=== PATIENT | male | born 1940 | race Caucasian/White ===

== ENCOUNTER 2016-12-28 09:10 | Outpatient (CLI) | payer MEDICARE, BC | END 2016-12-28 23:59 | disposition home or self-care (01) | LOC: CT 09:10 | DX: J43.2 Centrilobular emphysema (principal); I70.0 Atherosclerosis of aorta; N28.1 Cyst of kidney, acquired; I51.7 Cardiomegaly; Z87.891 Personal history of nicotine dependence | CPT/HCPCS: 71250 ==

== ENCOUNTER 2017-02-12 17:41 | Inpatient (IN) | payer MEDICARE, BC ==
[~2017-02-12] VITALS: Ht 172.7 cm; Wt 85.7 kg
[2017-02-12] VITALS (9 sets, daily range): BP systolic 106–123; BP diastolic 40–61
[2017-02-12 18:42] LABS: BASOPHILS # (AUTO) 0.1 K/uL (0.0-8.0); BASOPHILS % (AUTO) 0.6 % (0.0-2.0); EOSINOPHILS # (AUTO) 0.2 K/uL (0.0-0.7); EOSINOPHILS % (AUTO) 1.9 % (0.0-7.0); LYMPHOCYTES # (AUTO) 3.7 K/UL (0.8-4.8); LYMPHOCYTES % (AUTO) 42.3 % (20.5-51.5); MEAN CORPUSCULAR HEMOGLOBIN 28.8 UUG (27.0-31.0); MEAN CORPUSCULAR HGB CONC 33 g/dL (32.0-37.0); MEAN CORPUSCULAR VOLUME 87.3 FL (82.0-92.0); MONOCYTES # (AUTO) 0.8 K/UL (0.1-1.30); MONOCYTES % (AUTO) 9.6 % (0.0-11.0); NEUTROPHILS # (AUTO) 3.8 K/UL (1.8-8.9); NEUTROPHILS % (AUTO) 45.6 % (38.5-71.5); PLATELET COUNT (AUTO) 151 K/UL (150-450); RED CELL DISTRIBUTION WIDTH 13.8 % (11.5-14.5); WHITE BLOOD COUNT (AUTO) 8.6 K/UL (4.0-11.2)
[2017-02-12 18:47] LABS: CALCIUM 8.3 mg/dL (8.5-10.1); CHLORIDE 111 mmol/L (98-107); GLUCOSE 111 mg/dL (74-106); POTASSIUM 5.5 mmol/L (3.5-5.1); SODIUM SERUM 140 mmol/L (136-145)
[2017-02-12 18:48] LABS: CARBON DIOXIDE 19 mmol/L (21-32); CREATININE 2.1 mg/dL (0.6-1.3)
[2017-02-12 18:54] LABS: ALANINE AMINOTRANSFERASE 18 U/L (16-63); ALBUMIN 3.2 g/dL (3.4-5.0); ALKALINE PHOSPHATASE 59 U/L (50-136); ASPARTATE AMINOTRANSFERASE 20 U/L (15-37); BILIRUBIN,DIRECT < 0.1 mg/dL (0.0-0.2); BILIRUBIN,TOTAL 0.2 mg/dL (0.2-1.0)
[2017-02-12 18:57] LABS: RED BLOOD CELL COUNT(AUTO) 2.14 MIL/UL (4.7-6.1)
[2017-02-12] MEDS ORDERED: ATOR20TA PO (19:00)
[2017-02-12] MEDS ORDERED: EZET10TA PO (19:00)
[2017-02-12] MEDS ORDERED: ASPI81TA31 PO (19:00)
[2017-02-12] MEDS ORDERED: FURO20TA4 PO (19:00)
[2017-02-12] MEDS ORDERED: AZOR PO (19:00)
[2017-02-12] MEDS ORDERED: OLME20TA15 PO (19:00)
[2017-02-12 19:07] LABS: HEMATOCRIT 18.7 % (40-50); HEMOGLOBIN 6.2 G/DL (14.0-18.0)
[2017-02-12 19:08] LABS: NEUTROPHILS % (MANUAL) 0 % (42-75)
[2017-02-12 19:09] LABS: UREA NITROGEN, BLOOD 113 mg/dL (7-18)
[2017-02-12] MEDS ORDERED: IV NORMAL SALINE 1000 ML BAG IV ONE (19:30)
--- NOTE | 2017-02-12 20:09 | NUR ---
transfered to [facility] via [facility]
[2017-02-12] MEDS ORDERED: FUROSEMIDE 20 MG/2 ML VIAL IV ONE (20:30)
[2017-02-12] MEDS ORDERED: ACETAMINOPHEN 325 MG TABLET PO PRN (20:30)
--- NOTE | 2017-02-12 20:30 | NUR ---
Received patient from ER. Patient in stable condition. Alert and oriented x4. No complaints of pain or discomfort at this time. Vital signs WNL. V-paced with LBBB noted on bedside monitor. Hemodynamically stable. SpO2 and RR WNL on room air. Peripheral IV to right forearm #20, intact and patent. Will continue plan of care. and daughter at bedside. Spoke with Dr. Martinez for admission orders and home med reconciliation, see order list. Per MD, BMP and H/H to be re-evaluated 1hr post-transfusion of 2nd unit PRBC, then H/H Q6HRS
[2017-02-12] MEDS: PANTOPRAZOLE SODIUM 40 MG VIAL IV SCH (21:21)
--- NOTE | 2017-02-12 22:01 | NUR ---
Pt placed on CPAP per MD orders settings CPAP 8, FIO2-21%. Pt appears to be tolerating settings well at this time. Pt to be monitored throughout the shift. BVM at bedside. V60 alarms have been checked and remain audible at this time.
--- NOTE | 2017-02-12 23:35 | NUR ---
Pt's has dropped off pt's own personal CPAP machine and has requested for it to be placed in place of the hospital V60. Pt now on own CPAP and is in no resp. distress.
--- NOTE | 2017-02-12 23:35 | NUR ---
Patient prefers to use home CPAP machine. brought to bedside and connecting at this time.
--- NOTE | 2017-02-12 23:45 | NUR ---
Transfused first unit of pRBCs. No signs of adverse effect noted. Patient continues to be in stable condition.
[2017-02-13] VITALS (21 sets, daily range): BP systolic 91–142; BP diastolic 37–109
[2017-02-13] MEDS ORDERED: FUROSEMIDE 20 MG/2 ML VIAL ONE (02:42)
[2017-02-13] MEDS: IV D5/ 0.9% NACL 1,000 ML IV PRN ×2 (03:11→18:02)
--- NOTE | 2017-02-13 03:39 | NUR ---
Transfused 2nd unit of PRBC. No adverse reactions noted. Lasix pulled from [facility] and administered as ordered. See eMAR
--- NOTE | 2017-02-13 03:40 | NUR ---
Patient had a small bowel movement, dark in color. Will continue to monitor.
--- NOTE | 2017-02-13 03:42 | NUR ---
Per MD orders, BMP and H/H to be re-evaluated 1hour post-transfusion. Transfusion of 2nd unit PRBC completed approximately 0315. Called laboratory to draw morning labs at 0415.
--- NOTE | 2017-02-13 04:03 | NUR ---
Patient had another bowel movement, dark in color. Will continue to monitor.
[2017-02-13 04:51] LABS: BASOPHILS # (AUTO) 0.1 K/uL (0.0-8.0); BASOPHILS % (AUTO) 0.7 % (0.0-2.0); EOSINOPHILS # (AUTO) 0.2 K/uL (0.0-0.7); EOSINOPHILS % (AUTO) 2.3 % (0.0-7.0); HEMATOCRIT 27.5 % (40-50); LYMPHOCYTES # (AUTO) 2.8 K/UL (0.8-4.8); MEAN CORPUSCULAR HEMOGLOBIN 28.9 UUG (27.0-31.0); MEAN CORPUSCULAR HGB CONC 33 g/dL (32.0-37.0); MEAN CORPUSCULAR VOLUME 88.5 FL (82.0-92.0); MONOCYTES # (AUTO) 0.7 K/UL (0.1-1.30); MONOCYTES % (AUTO) 8.1 % (0.0-11.0); NEUTROPHILS # (AUTO) 5.4 K/UL (1.8-8.9); NEUTROPHILS % (AUTO) 57.9 % (38.5-71.5); PLATELET COUNT (AUTO) 141 K/UL (150-450); RED CELL DISTRIBUTION WIDTH 14.1 % (11.5-14.5); WHITE BLOOD COUNT (AUTO) 9.2 K/UL (4.0-11.2)
--- NOTE | 2017-02-13 05:00 | NUR ---
Patient deferred bed bath and morning care to a later time. Will endorse to day shift
[2017-02-13 05:02] LABS: CALCIUM 8.4 mg/dL (8.5-10.1); MAGNESIUM 2.2 mg/dL (1.8-2.4); PHOSPHOROUS 4.5 mg/dL (2.5-4.9); POTASSIUM 5.4 mmol/L (3.5-5.1)
[2017-02-13 05:19] LABS: CREATININE 2.1 mg/dL (0.6-1.3)
[2017-02-13 05:22] LABS: ALBUMIN 3.5 g/dL (3.4-5.0); BILIRUBIN,DIRECT 0.1 mg/dL (0.0-0.2); BILIRUBIN,TOTAL 0.4 mg/dL (0.2-1.0); TOTAL PROTEIN, SERUM 6.5 g/dL (6.4-8.2)
--- NOTE | 2017-02-13 06:00 | NUR ---
Patient resting in bed, at bedside. Denies pain or discomfort. Bedside monitor intact, V-paced LBBB. Home CPAP machine in place. SpO2 and RR WNL. Afebrile throughout shift. 2 units PRBCs transfused with no adverse reactions. Tolerating IVF well. Able to walk to restroom with minimal assistance. Moved bowels x3 this morning, continues to have black stool. Good urine output. No significant events throughout the night, no acute distress noted. Will give SBAR report to day shift nurse. Spoke with Dr. Martinez this AM, updates given.
[2017-02-13] MEDS: PANTOPRAZOLE SODIUM 40 MG VIAL IV SCH ×2 (08:31→20:56)
[2017-02-13 08:32] LABS: IRON, SERUM 93 ug/dL (50-175)
[2017-02-13 09:32] LABS: *OCCULT BLOOD STOOL POSITIVE (NEGATIVE)
[2017-02-13 10:13] LABS: HEMATOCRIT 25.7 % (40-50); HEMOGLOBIN 8.4 G/DL (14.0-18.0)
[2017-02-13 10:22] LABS: CALCIUM 8.1 mg/dL (8.5-10.1); POTASSIUM 5.5 mmol/L (3.5-5.1)
--- NOTE | 2017-02-13 10:56 | NUR ---
PHYSICAL THERAPY CANCELLED TODAY PER FAMILY REQUEST, CONCERNED REGARDING GI BLEED.
[2017-02-13] MEDS ORDERED: EPOETIN ALFA 20,000 UNIT/ML ML SQ ONE (14:15)
[2017-02-13 15:38] LABS: HEMATOCRIT 25.6 % (40-50); HEMOGLOBIN 8.4 G/DL (14.0-18.0)
--- NOTE | 2017-02-13 19:30 | NUR ---
Patient resting in bed, in no acute distress. Denies any pain or discomfort at this time. Awake, alert oriented x4. On bedside monitor, V paced with LBBB. HR WNL. Hemodynamically stable. On room air, SpO2 and RR WNL. Peripheral IV right antecubital is patent and intact. DVT pumps as ordered. NPO status. SBAR report received from Napoleon GILES RN. Will continue plan of care.
[2017-02-13 22:41] LABS: HEMOGLOBIN 8.7 G/DL (14.0-18.0)
--- NOTE | 2017-02-13 22:58 | NUR ---
Improved Hgb and Hct. No call to call needed to MD. Will continue to monitor q6hrs
[2017-02-14] VITALS (13 sets, daily range): BP systolic 102–140; BP diastolic 42–91
[2017-02-14 04:37] LABS: HEMATOCRIT 26.4 % (40-50); HEMOGLOBIN 8.5 G/DL (14.0-18.0)
[2017-02-14] MEDS: IV D5/ 0.9% NACL 1,000 ML IV PRN ×2 (05:46→11:48)
--- NOTE | 2017-02-14 08:29 | NUR ---
STARTED 1 UNIT OF BLOOD TRANSFUSION PER DOCTOR [facility] ORDER. PATIENT IS DOWN GRADED TO TELE STATUS.
[2017-02-14 09:15] LABS: CALCIUM 8.2 mg/dL (8.5-10.1); POTASSIUM 5.2 mmol/L (3.5-5.1)
[2017-02-14 09:17] LABS: CREATININE 1.8 mg/dL (0.6-1.3)
--- NOTE | 2017-02-14 09:45 | NUR ---
patient is back from recovery,report received from rehana BOX. patient returns fully awake alert patient is able to sit on side of bed. patient passing flatulence. patient diet changed to full clear liquid diet. blood transfusion is still running
[2017-02-14] MEDS: PANTOPRAZOLE SODIUM 40 MG VIAL IV SCH (10:00)
--- NOTE | 2017-02-14 10:24 | NUR ---
report given to GRECIA BOX patient will be going to room 228.
--- NOTE | 2017-02-14 10:58 | NUR ---
second set of blood transfusion vitals taken during EGD procedure
--- NOTE | 2017-02-14 11:29 | NUR ---
PT IS TRANSFERRED TO [facility]. PT IS LAYING IN BED COMFORTABLY. NO PAIN REPORTED. IV INTACT/PATENT. ALL SAFETY NEEDS ARE MET.
--- NOTE | 2017-02-14 14:00 | NUR ---
DISCHARGE NOTE: PT IS READY TO BE DISCHARGE, D/C PAPERWORK IS SIGNED. NO S/S OF RESPIRATORY DISTRESS NOTED. PT IS VPACE ON TELE. NO PAIN REPORTED. PT WAS ABLE TO AMBULATE STEADILY. IV/WRISTBAND IS REMOVED. ALL SAFETY NEEDS ARE MET. PT WENT HOME WITH THE .
== END 2017-02-14 14:00 | disposition home or self-care (01) | DRG 377 ==
LOC: ER 17:41 → CCU 20:22 → TELE 02-14 11:15
PROVIDERS: ADMIT Internal Medicine; ATTEND Internal Medicine
PROC: 30233N1 Transfusion of Nonautologous Red Blood Cells into Peripheral Vein, Percutaneous Approach (ICD-10-PCS; 2017-02-12)
PROC: 0DB68ZX Excision of Stomach, Via Natural or Artificial Opening Endoscopic, Diagnostic (ICD-10-PCS; 2017-02-14)
PROC: 0W3P8ZZ Control Bleeding in Gastrointestinal Tract, Via Natural or Artificial Opening Endoscopic (ICD-10-PCS; principal; 2017-02-14 08:32)
DX: K26.4 Chronic or unspecified duodenal ulcer with hemorrhage (principal); N17.0 Acute kidney failure with tubular necrosis; D64.9 Anemia, unspecified; E78.5 Hyperlipidemia, unspecified; I10 Essential (primary) hypertension; J44.9 Chronic obstructive pulmonary disease, unspecified; N18.3 Chronic kidney disease, stage 3 (moderate); I12.9 Hypertensive chronic kidney disease with stage 1 through stage 4 chronic kidney disease, or unspecified chronic kidney disease; N40.0 Benign prostatic hyperplasia without lower urinary tract symptoms; Z87.11 Personal history of peptic ulcer disease; Z95.0 Presence of cardiac pacemaker; E78.00 Pure hypercholesterolemia, unspecified; G47.33 Obstructive sleep apnea (adult) (pediatric); I25.10 Atherosclerotic heart disease of native coronary artery without angina pectoris; Z87.19 Personal history of other diseases of the digestive system; R73.9 Hyperglycemia, unspecified; Z95.2 Presence of prosthetic heart valve; I65.23 Occlusion and stenosis of bilateral carotid arteries; Z79.82 Long term (current) use of aspirin; K29.81 Duodenitis with bleeding; K29.70 Gastritis, unspecified, without bleeding
CPT/HCPCS: 36415; 71010; 76770; 83550; 83735; 84100; 85018; 85025; 85730; 86850; 86900; 86901; 86920; 93005; 97001; A4663; C9113; J0885; J1940; J7030; J7042; J7050; P9016-BL; P9021

== ENCOUNTER 2017-03-24 22:02 | Emergency (ER) | payer MEDICARE, BC ==
[~2017-03-24] VITALS: Ht 172.7 cm; Wt 83.0 kg
[~2017-03-24 22:02] MED LIST: ATOR20TA PO; EZET10TA13 PO
--- NOTE | 2017-03-24 22:15 | NUR ---
Patient arrived to ER accompanied by his . Patient has complaint of Right ear pain, feeling of occasional dizziness with movement. Patient has SaO2 on room air of 92%. No respiratory distress noted. Placed in room 1B, awaiting MD.
[2017-03-24] MEDS ORDERED: FURO-152 PO (22:31)
[2017-03-24] MEDS ORDERED: PANT40TA4 PO (22:31)
[2017-03-24] MEDS ORDERED: AMLO5TAB2 PO (22:31)
[2017-03-24 22:51] LABS: BASOPHILS % (AUTO) 0.6 % (0.0-2.0); EOSINOPHILS # (AUTO) 0.1 K/uL (0.0-0.7); EOSINOPHILS % (AUTO) 1.7 % (0.0-7.0); HEMOGLOBIN 10.2 G/DL (14.0-18.0); LYMPHOCYTES # (AUTO) 1.7 K/UL (0.8-4.8); LYMPHOCYTES % (AUTO) 21.2 % (20.5-51.5); MEAN CORPUSCULAR HEMOGLOBIN 28.1 UUG (27.0-31.0); MEAN CORPUSCULAR HGB CONC 33 g/dL (32.0-37.0); MEAN CORPUSCULAR VOLUME 85.5 FL (82.0-92.0); MONOCYTES # (AUTO) 0.8 K/UL (0.1-1.30); NEUTROPHILS # (AUTO) 5.4 K/UL (1.8-8.9); NEUTROPHILS % (AUTO) 66.5 % (38.5-71.5); PLATELET COUNT (AUTO) 154 K/UL (150-450); RED BLOOD CELL COUNT(AUTO) 3.62 MIL/UL (4.7-6.1)
[2017-03-24 23:05] LABS: *BILIRUBIN,URIN NEGATIVE (NEGATIVE); *BLOOD, URINE 1+ (NEGATIVE); *CLARITY,URINE CLEAR (CLEAR); *COLOR,URINE STRAW (YELLOW); *KETONES,URINE NEGATIVE (NEGATIVE); *PROTEIN,URINE 2+ (NEGATIVE); *UROBILINOGEN,URINE 0.2 E.U./dl (NORMAL); LEUKOCYTE ESTERASE ,URINE NEGATIVE (NEGATIVE); NITRITE, URINE NEGATIVE (NEGATIVE); UGLUCOSE NEGATIVE (NEGATIVE)
[2017-03-24 23:07] LABS: ALANINE AMINOTRANSFERASE 22 U/L (16-63); ALKALINE PHOSPHATASE 88 U/L (50-136); ASPARTATE AMINOTRANSFERASE 36 U/L (15-37); BILIRUBIN,DIRECT 0.1 mg/dL (0.0-0.2); BILIRUBIN,TOTAL 0.5 mg/dL (0.2-1.0); CARBON DIOXIDE 23 mmol/L (21-32); CHLORIDE 109 mmol/L (98-107); CREATININE 1.6 mg/dL (0.6-1.3); GLUCOSE 131 mg/dL (74-106); LIPASE 118 U/L (73-393); POTASSIUM 3.6 mmol/L (3.5-5.1); UREA NITROGEN, BLOOD 37 mg/dL (7-18)
[2017-03-24 23:35] LABS: BACTERIA,URINE NONE SEEN /HPF (NONE SEEN); RBC,URINE 0-3 /HPF (0-3); SQUAMOUS EPITHELIAL CELL,UR NONE SEEN /HPF (NONE SEEN); WBC,URINE 0-3 /HPF (0-3)
--- NOTE | 2017-03-25 00:16 | NUR ---
Patient in bed, no respiratory distress noted. Awaiting duplex venous US.
--- NOTE | 2017-03-25 01:21 | NUR ---
Patient discharged to home in stable conditon. Written and verbal after care instructions given. Patient verbalizes understanding of instructions. Ambulated from ER with stable gait. All belongings with patient. peripheral line removed. No further distress noted.
[2017-03-25 01:23] VITALS: BP 140/81
== END 2017-03-25 01:26 | disposition home or self-care (01) ==
LOC: ER 22:31
DX: I11.0 Hypertensive heart disease with heart failure (principal); I50.9 Heart failure, unspecified; E78.00 Pure hypercholesterolemia, unspecified; Z95.0 Presence of cardiac pacemaker; Z88.0 Allergy status to penicillin; Z88.1 Allergy status to other antibiotic agents
CPT/HCPCS: 36415; 71010; 80048; 80076; 81001; 83605; 83690; 84484; 85025; 85730; 86850; 86870; 86900; 86901; 87040 ×2; 87086; 93005; 93970; 99285; A4663; 70030-TC